=== PATIENT | female | born 1950 | race Caucasian/White ===

== ENCOUNTER 2018-06-23 07:39 | Emergency (ER) | payer SELFPAY ==
[2018-06-23] MEDS ORDERED: ZITHROMAX PO ONE (08:03)
[2018-06-23] MEDS ORDERED: DELTASONE PO ONE (08:03)
[2018-06-23] MEDS ORDERED: TORADOL IM ONE (08:04)
--- NOTE | 2018-06-23 08:17 | Emergency Department Report ---
Minor Respiratory - HPI Chief Complaint: Headache Stated Complaint: HEADACHE 3DAYS Time Seen by Provider: 06/23/18 08:03 Duration: 5 Days Pain Location: Other Severity: mild Minor Respiratory: Yes Able to Tolerate Fluids, Yes Ear Pain, No Rhinorrhea, No Sore Throat, No Cough, No Sick Contacts, No Hemoptysis, No Chest Pain, No Shortness of Breath, No Fever Other History: Patient is a 68-year-old female who comes to the ER complaining of a headache for 3 months. Patient is only speaking and an spring tacker had been utilized. The patient has been to numerous doctors over the last 3 months for this headache. She's had numerous CAT scans according to her history that there is no acute intracranial process. However, the and are concerned that the patient is having a stroke. Even though she's had the CT is a don't think anyone to take time to explain to them that she has not had a stroke. Patient was reassured that she has no focal neuro deficit and her symptoms are not consistent with a CVA. Patient has been very anxious visit. With the spring tacker we were able to do a thorough exam and educate the patient and the family as to the cause of headache. Patient says the headache is worse on the right side of her face. She states there is no blurred vision dizziness or weakness of extremities. She's had no difficulty with speech. Patient does describe a recent upper respiratory tract infection and in fact has tender frontal and maxillary sinus on exam. She also has bilateral conjunctivitis. ED Review of Systems ROS: Stated complaint: HEADACHE 3DAYS Other details as noted in HPI Comment: All other systems reviewed and negative Constitutional: denies: chills Eyes: eye discharge. denies: eye pain, vision change ENT: as per HPI, congestion. denies: ear pain, throat pain, dental pain, hearing loss, epistaxis Respiratory: see HPI. denies: cough Cardiovascular: as per HPI. denies: chest pain Endocrine: denies: excessive sweating Gastrointestinal: denies: abdominal pain Genitourinary: denies: urgency Musculoskeletal: denies: back pain Skin: denies: rash Neurological: as per HPI, headache. denies: weakness, numbness, paresthesias, confusion, abnormal gait Psychiatric: as per HPI, anxiety Hematological/Lymphatic: denies: easy bleeding ED Past Medical Hx - Past Medical History Previous Medical History?: Yes Hx Hypertension: Yes Hx Diabetes: Yes Additional medical history: high cholesterol - Surgical History Past Surgical History?: No - Family History Family history: no significant - Social History Smoking Status: Never Smoker Substance Use Type: None - Medications Home Medications: Home Medications Medication Instructions Recorded Confirmed Last Taken Type Fluticasone [Flonase] 1 spray NS QDAY #1 bottle 06/23/18 Unknown Rx RX: Azithromycin [Zithromax Z-PEYMAN] 250 mg PO DAILY #6 tablet 06/23/18 Unknown Rx methylPREDNISolone [Medrol] 4 mg PO DAILY #1 tab.ds.pk 06/23/18 Unknown Rx Minor Respiratory Exam - Exam General: Vital signs noted. No distress. Alert and acting appropriately. HEENT: Yes Pharyngeal Erythema, Yes Moist Mucous Membranes, Yes Rhinorrhea, Yes Conjuctival Injection, Yes Frontal Tenderness, Yes Maxillary Tenderness, No Pharyngeal Exudates Ear: Neither TM Bulge, Neither TM Erythema, Neither EAC Pain, Neither EAC Discharge Neck: Yes Supple, No Adenopathy Lungs: Yes Good Air Exchange, No Wheezes, No Ronchi, No Stridor, No Cough, No Labored Respirations, No Retractions, No Use of Accessory Muscles, No Other Abnormal Lung Sounds Heart: Yes Regular, No Murmur Abdomen: Yes Normal Bowel Sounds, No Tenderness, No Peritoneal Signs Skin: No Rash, No Edema Neurologic: Alert and oriented, no deficits. No pronator drift. Patient is ambulatory. She has no facial drooping. Tongue is midline. Patient patient has no difficulty finding words. She understands provider with spring tacker. Vision is unchanged. No focal neuro deficit found on exam. Musculoskeletal: Unremarkable. ED Course Vital Signs 06/23/18 07:47 Temperature 97.9 F Pulse Rate 71 Respiratory 18 Rate Blood Pressure 185/72 O2 Sat by Pulse 96 Oximetry ED Medical Decision Making - Medical Decision Making Approximately 30 minutes time was spent with the use of an spring tacker to obtain information from the patient into sweats further concerns. Both patient and very emotional. Reassured and educated. Patient treated for her sinus infection. She does have a PCP for follow-up. Critical care attestation.: If time is entered above; I have spent that time in minutes in the direct care of this critically ill patient, excluding procedure time. ED Disposition Clinical Impression: Sinusitis Disposition: DC-01 TO HOME OR SELFCARE Is pt being admited?: No Does the pt Need Aspirin: No Condition: Stable Instructions: Sinusitis (ED) Additional Instructions: FOLLOW UP WITH PCP TUESDAY MEDS ORDERED HYDRATE WELL WITH WATER MOTRIN OR TYLENOL FOR PAIN DIET AND ACTIVITY TOLERATED Prescriptions: RX: Azithromycin [Zithromax Z-PEYMAN] 250 mg PO DAILY #6 tablet Fluticasone [Flonase] 1 spray NS QDAY #1 bottle methylPREDNISolone [Medrol] 4 mg PO DAILY #1 tab.ds.pk Referrals: [facility] [Outside] - 3-5 Days Time of Disposition: 08:15
[2018-06-23 08:56] VITALS: BP 158/90
== END 2018-06-23 08:53 | disposition home or self-care (01) ==
LOC: ED 07:39
DX: J32.9 Chronic sinusitis, unspecified (principal); I10 Essential (primary) hypertension; E11.9 Type 2 diabetes mellitus without complications; E78.5 Hyperlipidemia, unspecified
CPT/HCPCS: 96372; 99282; J1885; J7512

== ENCOUNTER 2020-02-05 10:03 | Emergency (ER) | payer SELFPAY ==
[2020-02-05 14:30] LABS: Basophils # (Auto) 0.1 K/mm3 (0.0-0.1); Basophils % (Auto) 0.7 % (0.0-1.8); Eosinophils # (Auto) 0.2 K/mm3 (0.0-0.4); Eosinophils % (Auto) 2.2 % (0.0-4.3); Hematocrit 39.4 % (30.3-42.9); Hemoglobin 13.3 gm/dl (10.1-14.3); Lymphocytes # (Auto) 2.8 K/mm3 (1.2-5.4); Mean Corpuscular HGB Conc 34 % (30-34); Mean Corpuscular Volume 94 fl (79-97); Monocytes # (Auto) 0.5 K/mm3 (0.0-0.8); Monocytes % (Auto) 5.5 % (0.0-7.3); Platelet Count 296 K/mm3 (140-440); Red Blood Count 4.21 M/mm3 (3.65-5.03); Red Cell Distribution Width 13.6 % (13.2-15.2)
[2020-02-05 15:01] LABS: Alanine Aminotransferase 20 units/L (7-56); Albumin 4.2 g/dL (3.9-5); Blood Urea Nitrogen 13 mg/dL (7-17); Calcium 9.3 mg/dL (8.4-10.2); Hemolysis Index 3
[2020-02-05 15:02] LABS: BUN/Creatinine Ratio 26
--- NOTE | 2020-02-05 15:08 | Cat Scan Report ---
CT HEAD WITHOUT CONTRAST INDICATION / CLINICAL INFORMATION: acute right sided headache. TECHNIQUE: All CT scans at this location are performed using CT dose reduction for ALARA by means of automated e xposure control. COMPARISON: None available. FINDINGS: HEMORRHAGE: No evidence of intracranial hemorrhage or extra-axial fluid collection. EXTRA-AXIAL SPACES: Cortical sulci, sylvian fissures and basilar cisterns have an unremarkable appear ance. VENTRICULAR SYSTEM: The third and lateral ventricles are at the upper limit of normal for size for th e patient's age of 69 years. CEREBRAL PARENCHYMA: Mild periventricular and deep white matter lucency is noted likely related to mi crovascular ischemic change. MIDLINE SHIFT OR HERNIATION: There is no mass effect. CEREBELLUM / BRAINSTEM: Brainstem and cerebellum have an unremarkable appearance. MIDLINE STRUCTURES:No abnormalities of the pituitary gland or pineal region are identified. INTRACRANIAL VESSELS: Calcified atherosclerotic plaque is seen along the course of the cavernous segm ents of both internal carotid arteries. Similar findings are present at the distal vertebral arteries . ORBITS: Status post bilateral cataract surgery. The orbits have an otherwise unremarkable appearance. SOFT TISSUES of HEAD: No significant abnormality. CALVARIUM: Evaluation of bone windows reveals no abnormalities. PARANASAL SINUSES / MASTOID AIR CELLS: A dentigerous cyst versus retention cyst versus polyp is demon strated at the base of the right maxillary sinus. Paranasal sinuses are otherwise clear. ADDITIONAL FINDINGS: None. IMPRESSION: 1. No acute intracranial abnormality on head CT without contrast.. 2. Mild age-related involutional changes. Signer Name: Hudson Walter MD Signed: 02/05/2020 3:03 PM Workstation Name: [id number]
[2020-02-05] MEDS ORDERED: diphenhydrAMINE 25 MG CAP PO ONE (17:38)
[2020-02-05] MEDS ORDERED: KETOROLAC 60 MG/2 ML INJ IM ONE (17:38)
[2020-02-05] MEDS ORDERED: METOCLOPRAMIDE 10 MG TAB PO ONE (17:38)
[2020-02-05 17:57] VITALS: BP 174/46
[2020-02-05 18:46] LABS: Bilirubin,Urine NEG (Negative); Blood,Urine NEG (Negative); Color,Urine Yellow (Yellow); Mucus,Urine FEW /HPF; Protein,Urine <15 mg/dL mg/dL (Negative); Urobilinogen,Urine < 2.0 mg/dL (<2.0)
--- NOTE | 2020-02-05 18:49 | Emergency Department Report ---
ED Headache HPI - General Chief Complaint: Earache Stated Complaint: (R) PAIN/HEADACHE Time Seen by Provider: 02/05/20 12:51 Source: patient, family Exam Limitations: language barrier - History of Present Illness Initial Comments: Language interpretation performed by patient's family member with patient's permission Patient is a 69-year-old female presents emergency room with complaints of a right frontal headache that began 3 days ago. She states that she also has a headache to the right zoroastrian, behind the right eye, and radiates to the right ear. She states that she has been taking Motrin and Advil which relieves the headache but then it returns. She states that she has had a headache similar to this approximately a year ago but states that she is not sure what it was from. She denies any fever, rhinorrhea, congestion, ear drainage, weakness, numbness, vision changes, any other symptoms. She has a past medical history of diabetes, hypertension, hyperlipidemia. She states that she did not take her blood pressure medication today but states that she does have it at home. She denies any allergies to medications. Allergies/Adverse Reactions: Allergies No Known Allergies Allergy (Verified 06/23/18 07:47) Home Medications: Ambulatory Orders Azithromycin [Zithromax Z-PEYMAN] 250 mg PO DAILY #6 tablet 06/23/18 Fluticasone [Flonase] 1 spray NS QDAY #1 bottle 06/23/18 methylPREDNISolone [Medrol] 4 mg PO DAILY #1 tab.ds.pk 06/23/18 Butalb/Acetaminophen/Caffeine [Fioricet 50-300-40 mg CAP] 1 cap PO Q8HR PRN #10 cap 02/05/20 amLODIPine 10 mg PO DAILY #30 tab 02/05/20 cephALEXin [Keflex] 500 mg PO BID 7 Days #14 cap 02/05/20 ED Review of Systems ROS: Stated complaint: (R) PAIN/HEADACHE Other details as noted in HPI Comment: All other systems reviewed and negative ED Past Medical Hx - Past Medical History Previous Medical History?: Yes Hx Hypertension: Yes Hx Diabetes: Yes Additional medical history: high cholesterol - Surgical History Past Surgical History?: No - Social History Smoking Status: Never Smoker Substance Use Type: None - Medications Home Medications: Home Medications Medication Instructions Recorded Confirmed Last Taken Type Azithromycin [Zithromax Z-PEYMAN] 250 mg PO DAILY #6 tablet 06/23/18 Unknown Rx Fluticasone [Flonase] 1 spray NS QDAY #1 bottle 06/23/18 Unknown Rx methylPREDNISolone [Medrol] 4 mg PO DAILY #1 tab.ds.pk 06/23/18 Unknown Rx Butalb/Acetaminophen/Caffeine 1 cap PO Q8HR PRN #10 cap 02/05/20 Unknown Rx [Fioricet 50-300-40 mg CAP] amLODIPine 10 mg PO DAILY #30 tab 02/05/20 Unknown Rx cephALEXin [Keflex] 500 mg PO BID 7 Days #14 cap 02/05/20 Unknown Rx ED Physical Exam - General Limitations: Language Barrier General appearance: alert, in no apparent distress - Head Head exam: Present: atraumatic, normocephalic, other (no ttp or edema over the temporal artery bilaterally) - Eye Eye exam: Present: normal appearance, PERRL, EOMI. Absent: conjunctival injection, nystagmus, periorbital swelling, periorbital tenderness Pupils: Present: normal accommodation - ENT ENT exam: Present: mucous membranes moist - Neck Neck exam: Present: full ROM. Absent: meningismus - Respiratory Respiratory exam: Present: normal lung sounds bilaterally. Absent: respiratory distress, wheezes, rales, rhonchi, stridor, chest wall tenderness, accessory muscle use, decreased breath sounds, prolonged expiratory - Cardiovascular Cardiovascular Exam: Present: regular rate, normal rhythm, normal heart sounds. Absent: systolic murmur, diastolic murmur, rubs, gallop - Neurological Exam Neurological exam: Present: alert, oriented X3, CN II-XII intact, normal gait. Absent: motor sensory deficit - Psychiatric Psychiatric exam: Present: normal affect, normal mood - Skin Skin exam: Present: warm, dry, intact ED Course Vital Signs 02/05/20 02/05/20 10:27 17:56 Temperature 98.6 F Pulse Rate 82 68 Respiratory 18 16 Rate Blood Pressure 194/79 174/46 [Right] O2 Sat by Pulse 99 98 Oximetry ED Medical Decision Making - Lab Data Result diagrams: 02/05/20 14:00 02/05/20 14:00 Lab Results 02/05/20 02/05/20 02/05/20 Range/Units 14:00 14:00 17:56 WBC 9.7 (4.5-11.0) K/mm3 RBC 4.21 (3.65-5.03) M/mm3 Hgb 13.3 (10.1-14.3) gm/dl Hct 39.4 (30.3-42.9) % MCV 94 (79-97) fl MCH 32 (28-32) pg MCHC 34 (30-34) % RDW 13.6 (13.2-15.2) % Plt Count 296 (140-440) K/mm3 Lymph % (Auto) 29.0 (13.4-35.0) % Sevier % (Auto) 5.5 (0.0-7.3) % Eos % (Auto) 2.2 (0.0-4.3) % Baso % (Auto) 0.7 (0.0-1.8) % Lymph # (Auto) 2.8 (1.2-5.4) K/mm3 Sevier # (Auto) 0.5 (0.0-0.8) K/mm3 Eos # (Auto) 0.2 (0.0-0.4) K/mm3 Baso # (Auto) 0.1 (0.0-0.1) K/mm3 Seg Neutrophils % 62.6 (40.0-70.0) % Seg Neutrophils # 6.0 (1.8-7.7) K/mm3 Sodium 144 (137-145) mmol/L Potassium 5.1 H (3.6-5.0) mmol/L Chloride 104.0 (98-107) mmol/L Carbon Dioxide 22 (22-30) mmol/L Anion Gap 23 mmol/L BUN 13 (7-17) mg/dL Creatinine 0.5 L (0.6-1.2) mg/dL Estimated GFR > 60 ml/min BUN/Creatinine Ratio 26 % Glucose 166 H (65-100) mg/dL Calcium 9.3 (8.4-10.2) mg/dL Total Bilirubin 0.30 (0.1-1.2) mg/dL AST 20 (5-40) units/L ALT 20 (7-56) units/L Alkaline Phosphatase 119 (35-129) units/L Total Protein 8.0 (6.3-8.2) g/dL Albumin 4.2 (3.9-5) g/dL Albumin/Globulin Ratio 1.1 % Urine Color Yellow (Yellow) Urine Turbidity Clear (Clear) Urine pH 6.0 (5.0-7.0) Ur Specific Hext 1.015 (1.003-1.030) Urine Protein <15 mg/dl (Negative) mg/dL Urine Glucose (UA) Neg (Negative) mg/dL Urine Ketones Neg (Negative) mg/dL Urine Blood Neg (Negative) Urine Nitrite Neg (Negative) Urine Bilirubin Neg (Negative) Urine Urobilinogen < 2.0 (<2.0) mg/dL Ur Leukocyte Esterase Lg (Negative) Urine WBC (Auto) 40.0 H (0.0-6.0) /HPF Urine RBC (Auto) 3.0 (0.0-6.0) /HPF Urine Mucus Few /HPF Urine Yeast (Budding) 1+ /HPF Vital Signs 02/05/20 02/05/20 10:27 17:56 Temperature 98.6 F Pulse Rate 82 68 Respiratory 18 16 Rate Blood Pressure 194/79 174/46 [Right] O2 Sat by Pulse 99 98 Oximetry - Radiology Data Radiology results: report reviewed CT HEAD WITHOUT CONTRAST INDICATION / CLINICAL INFORMATION: acute right sided headache. TECHNIQUE: All CT scans at this location are performed using CT dose reduction for ALARA by means of automated exposure control. COMPARISON: None available. FINDINGS: HEMORRHAGE: No evidence of intracranial hemorrhage or extra-axial fluid collection. EXTRA-AXIAL SPACES: Cortical sulci, sylvian fissures and basilar cisterns have an unremarkable appearance. VENTRICULAR SYSTEM: The third and lateral ventricles are at the upper limit of normal for size for the patient's age of 69 years. CEREBRAL PARENCHYMA: Mild periventricular and deep white matter lucency is noted likely related to microvascular ischemic change. MIDLINE SHIFT OR HERNIATION: There is no mass effect. CEREBELLUM / BRAINSTEM: Brainstem and cerebellum have an unremarkable appearance. MIDLINE STRUCTURES:No abnormalities of the pituitary gland or pineal region are identified. INTRACRANIAL VESSELS: Calcified atherosclerotic plaque is seen along the course of the cavernous segments of both internal carotid arteries. Similar findings are present at the distal vertebral arteries. ORBITS: Status post bilateral cataract surgery. The orbits have an otherwise unremarkable appearance. SOFT TISSUES of HEAD: No significant abnormality. CALVARIUM: Evaluation of bone windows reveals no abnormalities. PARANASAL SINUSES / MASTOID AIR CELLS: A dentigerous cyst versus retention cyst versus polyp is demonstrated at the base of the right maxillary sinus. Paranasal sinuses are otherwise clear. ADDITIONAL FINDINGS: None. IMPRESSION: 1. No acute intracranial abnormality on head CT without contrast.. 2. Mild age-related involutional changes. Signer Name: Hudson Walter MD Signed: 02/05/2020 3:03 PM Workstation Name: [id number] Transcribed By: Dictated By: Hudson Walter MD Electronically Authenticated By: Hudson Walter MD Signed Date/Time: 02/05/20 1500 DD/ 1456 TD/TT: - Medical Decision Making Language interpretation performed by patient's family member with patient's permission Patient is a 69-year-old female presents emergency room with complaints of a right frontal headache that began 3 days ago. She states that she also has a headache to the right zoroastrian, behind the right eye, and radiates to the right ear. She states that she has been taking Motrin and Advil which relieves the headache but then it returns. She states that she has had a headache similar to this approximately a year ago but states that she is not sure what it was from. She denies any fever, rhinorrhea, congestion, ear drainage, weakness, numbness, vision changes, any other symptoms. She has a past medical history of diabetes, hypertension, hyperlipidemia. She states that she did not take her blood pressure medication today but states that she does have it at home. She denies any allergies to medications. Vitals with elevated blood pressure which improved upon repeat, likely secondary to patient not taking her BP medication. Labs are stable. UA shows evidence of UTI. CT head 1. No acute intracranial abnormality on head CT without contrast.. 2. Mild age-related involutional changes. Patient given Benadryl, Reglan, Toradol and headache completely resolved and she was feeling much better and ready to go home. Discussed all results with patient and patient's family member. Given prescription for Fioricet and Keflex. Family number also asked if we could refill patient's amlodipine patient given prescription for amlodipine. Advised patient Please take medication as prescribed. Increase your water intake. Follow-up with your primary care doctor. Follow-up with a neurologist. Return to emergency room for any new or worsening symptoms. - Differential Diagnosis migraine DAILEY, tension DAILEY, cluster DAILEY, ICH, CVA, HTN urgency Critical care attestation.: If time is entered above; I have spent that time in minutes in the direct care of this critically ill patient, excluding procedure time. ED Disposition Clinical Impression: Elevated blood pressure reading Headache Qualifiers: Headache type: unspecified Headache chronicity pattern: acute headache Intr actability: not intractable Qualified Code(s): R51 - Headache UTI (urinary tract infection) Qualifiers: Urinary tract infection type: acute cystitis Hematuria presence: without hematuria Qualified Code(s): N30.00 - Acute cystitis without hematuria Disposition: TO HOME OR SELFCARE Is pt being admited?: No Does the pt Need Aspirin: No Condition: Stable Instructions: Urinary Tract Infection in Women (ED), Acute Headache (ED) Additional Instructions: Please take medication as prescribed. Increase your water intake. Follow-up with your primary care doctor. Follow-up with a neurologist. Return to emergency room for any new or worsening symptoms. [place] los medicamentos segn lo prescrito. Incrementa tu ingesta de agua. Lexus un seguimiento con underwood mdico de atencin primaria. Seguimiento con un neurlogo. Regrese a la emiliana de emergencias por cualquier sntoma nuevo o que empeore. Prescriptions: amLODIPine 10 mg PO DAILY #30 tab Butalb/Acetaminophen/Caffeine [Fioricet 50-300-40 mg CAP] 1 cap PO Q8HR PRN #10 cap PRN Reason: headache cephALEXin [Keflex] 500 mg PO BID 7 Days #14 cap Referrals: CAMRON GIANG MD [Primary Care Provider] - 2-3 Days MARKUS CONROY MD [Staff Physician] - 2-3 Days CARLOS FITZGERALD MD [Referring] - 2-3 Days GUS FAYE MD [Staff Physician] - 2-3 Days Time of Disposition: 19:10 Print Language: TAJIK
== END 2020-02-05 19:15 | disposition home or self-care (01) ==
LOC: ED 10:03
DX: N39.0 Urinary tract infection, site not specified (principal); R51.9 Headache, unspecified; R03.0 Elevated blood-pressure reading, without diagnosis of hypertension; I10 Essential (primary) hypertension; E11.9 Type 2 diabetes mellitus without complications; E78.00 Pure hypercholesterolemia, unspecified; Z79.899 Other long term (current) drug therapy
CPT/HCPCS: 36415; 70450; 80053; 81001; 85025; 87086; 96372; 99284; J1885